=== PATIENT | female | born 1980 | race Asian ===

== ENCOUNTER 2018-01-26 08:15 | Emergency (ER) | payer OTHER ==
[~2018-01-26] VITALS: Ht 162.6 cm; Wt 52.2 kg
[2018-01-26 08:28] VITALS: BP 131/77
[2018-01-26] MEDS ORDERED: IBUPROFEN 600 MG TABLET. PO ONE (09:00)
--- NOTE | 2018-01-26 09:03 | RAD ---
EXAM: Right foot 3 views. HISTORY: Fall with right foot pain. COMPARISON: None. FINDINGS: No fractures are identified. Joint spaces and alignment are maintained. IMPRESSION: 1. No fracture.
[2018-01-26] MEDS ORDERED: IBUP600T16 PO (09:21)
--- NOTE | 2018-01-26 09:22 | PHYS DOC ---
Past History Past Medical History: Hypothyroid Past Surgical History: Other Smoking: Non-smoker Alcohol Use: Occasionally Drug Use: None Adult General Chief Complaint Chief Complaint: ANKLE PROBLEM HPI HPI 37-year-old female patient states she was walking with a high heel night and twisted his right ankle and foot and since then has pain in right foot that didn 't get better with applying ice. Patient denies other injuries and focal neurodeficit and rated her pain 7/10. Review of Systems Review of Systems Constitutional: Denies fever or chills [] Eyes: Denies change in visual acuity, redness, or eye pain [] HENT: Denies nasal congestion or sore throat [] Respiratory: Denies cough or shortness of breath [] Cardiovascular: No additional information not addressed in HPI [] GI: Denies abdominal pain, nausea, vomiting, bloody stools or diarrhea [] : Denies dysuria or hematuria [] Musculoskeletal: Denies back pain, reports joint pain [] Integument: Denies rash or skin lesions [] Neurologic: Denies headache, focal weakness or sensory changes [] Endocrine: Denies polyuria or polydipsia [] All other systems were reviewed and found to be within normal limits, except as documented in this note. Current Medications Current Medications Current Medications Medications (Trade) Dose Ordered Sig/Tiffanie Start Time Stop Time Status Last Admin Dose Admin Ibuprofen (Motrin) 600 mg 1X ONCE 01/26/18 09:00 01/26/18 09:01 DC Allergies Allergies Allergies Coded Allergies Type Severity Reaction Last Updated Verified morphine Allergy Unknown 01/26/18 Yes Physical Exam Physical Exam Constitutional: Well developed, well nourished, mild distress, non-toxic appearance. [] HENT: Normocephalic, atraumatic Eyes: PERRLA, EOMI, conjunctiva normal, no discharge. [] Neck: Normal range of motion, no tenderness, supple, no stridor. [] Cardiovascular:Heart rate regular rhythm, no murmur [] Lungs & Thorax: Bilateral breath sounds clear to auscultation [] Skin: Warm, dry, no erythema, no rash. [] Back: No tenderness, no CVA tenderness. [] Extremities: Right ankle without deformity or tenderness, contusion in proximal and lateral side of right foot with mild tenderness without deformity or focal neuro deficit Neurologic: Alert and oriented X 3, normal motor function, normal sensory function, no focal deficits noted. [] Psychologic: Affect normal, judgement normal, mood normal. [] Current Patient Data Vital Signs Vital Signs Date Time Temp Pulse Resp B/P (MAP) Pulse Ox O2 Delivery O2 Flow Rate FiO2 01/26/18 08:28 98.3 67 16 100 Room Air EKG EKG [ [place] [id number] IMAGING REPORT Signed PATIENT: SUJATHA SOMERS ACCOUNT: [id number] : 1980 LOCATION: ER AGE: 37 SEX: F EXAM STATUS: REG ER ORD. PHYSICIAN: EDWAR BROWN MD REASON: injury PROCEDURE: FOOT RIGHT 3V EXAM: Right foot 3 views. HISTORY: Fall with right foot pain. COMPARISON: None. FINDINGS: No fractures are identified. Joint spaces and alignment are maintained. IMPRESSION: 1. No fracture. DICTATED AND SIGNED BY: JUNIOR ARELLANO MD DATE: 01/26/18 08 CC: EDWAR BROWN MD; PCP,NO ~ ] Radiology/Procedures Radiology/Procedures [] Course & Med Decision Making Course & Med Decision Making Pertinent Imaging studies reviewed. (See chart for details) Evaluation of patient in ER showed 37-year-old female patient with injury to right foot without deformity or fracture in x-ray. Patient treated with ibuprofen in ER and Hao wrap was applied by [employer]GER. Patient instructed to avoid of frequent physical activity and elevate her foot and apply ice. She instructed to follow up with her primary care physician if not getting better in 5-7 days. [] Dragon Disclaimer Dragon Disclaimer This electronic medical record was generated, in whole or in part, using a voice recognition dictation system. Departure Departure: Impression: Primary Impression: Right foot sprain Disposition: HOME, SELF-CARE (At 0919) Condition: IMPROVED Referrals: PCP,NO (PCP) Patient Instructions: Foot Sprain Additional Instructions: Apply ice on the affected area Follow-up with your primary care physician in 5-7 days Return to ER if not getting better Scripts Ibuprofen (IBUPROFEN) 600 Mg Tablet 600 MG PO TID PRN Y for PAIN, #30 TAB Prov: EDWAR BROWN MD 01/26/18 EDWAR BROWN MD Jan 26, 2018 09:22
== END 2018-01-26 09:30 | disposition home or self-care (01) ==
LOC: ER 08:15
DX: S93.601A Unspecified sprain of right foot, initial encounter (principal); E03.9 Hypothyroidism, unspecified; Z88.5 Allergy status to narcotic agent; X50.1XXA Overexertion from prolonged static or awkward postures, initial encounter; Y93.01 Activity, walking, marching and hiking; Y99.8 Other external cause status; Y92.89 Other specified places as the place of occurrence of the external cause
CPT/HCPCS: 73630; 99284